=== PATIENT | female | born 1930 | race Caucasian/White ===

== ENCOUNTER 2017-07-08 10:04 | Emergency (ER) | payer OTHER ==
[~2017-07-08] VITALS: Ht 147.3 cm; Wt 40.8 kg
--- NOTE | ~2017-07-08 | EKG ---
[facility] [employer] [place] [address] ELECTROCARDIOGRAM REPORT Name: KISHA DOWNEY [id number] Admission: 07/08/17 Attend Phys: Discharge: Date of : 30 Report #: [id number] THIS REPORT FOR: //name// [facility] ED Test Date: 2017-07-08 Test Time: 10:33:28 Pat Name: KISHA DOWNEY Department: Room: Gender: F Certified Physical Therapist Assistant: MILLA : 1930 Requested By: Juan Luis Rob Order Number: [id number] MD: Zaid Wyatt Measurements Intervals [place] Rate: 96 P: 269 FL: 246 QRS: -10 QRSD: 85 T: 65 QT: 345 QTc: 436 Interpretive Statements Sinus or ectopic atrial rhythm Prolonged [place] interval Low voltage, extremity leads Compared to ECG 07/19/2015 15:39:43 No significant change was found Electronically Signed On 07-08-2017 12:31:12 CDT by Zaid Wyatt [email or web address] <ELECTRONICALLY SIGNED> By: Zaid Wyatt MD, [facility] 07/08/17 1231 [id number] Zaid Wyatt MD, [facility] /EPI
[~2017-07-08 10:04] MED LIST: AMARYL4 MG PO; ASPIRIN EC81 M1 PO; CALCIUM PO; CENTRUM SILVER1 EAC4 PO; LEVOTHYROXIN0.075 MG PO; LEVOTHYROXIN0.125 M1 PO; NEURONTIN 300300 M1 PO; NEURONTIN100 MG PO; OCUVITE LUTEIN1 EAC1 PO; TOPROL XL25 MG PO; TRAMADOL 50 MG50 MG PO; ZOCOR20 MG PO; [UNRECOGNIZED DRUG - OTHER] PO
[2017-07-08 10:48] LABS: ABSOLUTE NEUTROPHILS 5.1 thou/uL (1.4-8.2); BASOPHILS 0.7 % (0.0-2.0); EOSINOPHILS 0.7 % (0.0-3.0); HEMATOCRIT 37.8 % (37.0-47.0); HEMOGLOBIN 12.8 gm/dL (12.0-15.0); LYMPHOCYTES 19.6 % (24.0-44.0); MCH 29.9 pg (26.0-34.0); MCHC 33.7 g/dL (28.0-37.0); MCV 88.7 fL (80.0-100.0); MONOCYTES 9.6 % (1.0-8.0); PLATELET COUNT 203 thou/uL (150-400); POLYS 69.4 % (36.0-66.0); RBC 4.26 mil/uL (4.20-5.00); RDW 13.1 % (10.5-14.5); WBC 7.4 thou/uL (4.0-11.0)
[2017-07-08 10:59] LABS: ANION GAP 8 mmol/L (7-16); BUN 14 mg/dL (7-18); CALCIUM 9.4 mg/dL (8.5-10.1); CHLORIDE 100 mmol/L (98-107); CO2 27 mmol/L (21-32); CREATININE 0.8 mg/dL (0.6-1.0); GLUCOSE 205 mg/dL (74-106); SODIUM 135 mmol/L (136-145)
[2017-07-08 11:07] LABS: MAGNESIUM 2.1 mg/dL (1.8-2.4); SGOT 20 U/L (15-37); SGPT 20 U/L (30-65); TOTAL BILIRUBIN 0.8 mg/dL (<0.1-1.0); TOTAL PROTEIN 7.3 g/dL (6.4-8.2); TROPONIN-I < 0.04 ng/mL (<0.06)
[2017-07-08 11:10] LABS: APTT 26.9 Seconds (24.5-32.8); D-DIMER 0.9 ug/mLFEU (0.19-0.50); PROTIME 10.3 Seconds (9.3-11.4)
== END 2017-07-08 14:00 | disposition home or self-care (01) ==
LOC: ER 10:04
PROVIDERS: Emergency Medicine
DX: M79.604 Pain in right leg (principal); R07.9 Chest pain, unspecified; E11.9 Type 2 diabetes mellitus without complications; M19.90 Unspecified osteoarthritis, unspecified site; Z90.710 Acquired absence of both cervix and uterus

== ENCOUNTER 2017-08-15 16:13 | Inpatient (IN) | payer OTHER ==
[~2017-08-15] VITALS: Ht 149.9 cm; Wt 56.7 kg
[~2017-08-15 16:13] MED LIST changes: +ACIDOPHILUS1 EAC4 PO; +AUGMENTIN 875-1 EACH PO; +LISINOPRIL10 MG PO
[2017-08-15 16:23] VITALS: BP 131/64
[2017-08-15] MEDS ORDERED: LINEZOLID600 MG PO (16:36)
[2017-08-15 17:42] LABS: HEMATOCRIT 35.3 % (37.0-47.0); HEMOGLOBIN 11.6 gm/dL (12.0-15.0); MCH 30.1 pg (26.0-34.0); MCV 91.1 fL (80.0-100.0); PLATELET COUNT 206 thou/uL (150-400); RBC 3.87 mil/uL (4.20-5.00); RDW 15.2 % (10.5-14.5); WBC 6.1 thou/uL (4.0-11.0)
[2017-08-15 17:49] LABS: CALCIUM 9.3 mg/dL (8.5-10.1); POTASSIUM 5.1 mmol/L (3.5-5.1)
[2017-08-15 18:04] LABS: ABSOLUTE NEUTROPHILS 3.5 thou/uL (1.4-8.2); ANISOCYTOSIS 1+; POLYCHROMASIA OCCASIONAL
[2017-08-15 18:41] LABS: URINE BILIRUBIN NEGATIVE (Negative); URINE BLOOD NEGATIVE (Negative); URINE CLARITY CLEAR; URINE COLOR YELLOW; URINE GLUCOSE-RANDOM* NEGATIVE (Negative); URINE KETONES NEGATIVE (Negative); URINE LEUKOCYTES-REFLEX 1+ (Negative); URINE NITRITE-REFLEX NEGATIVE (Negative); URINE PROTEIN (DIPSTICK) NEGATIVE (Negative); URINE SPECIFIC GRAVITY 1.015 (1.005-1.035); URINE UROBILINOGEN 0.2 E.U./dl (0.2-1.0)
[2017-08-15 18:48] LABS: CASTS None Seen /LPF (None Seen); CRYSTALS None Seen /LPF (None Seen); SQUAMOUS 0-3 Few /LPF (0-3)
[2017-08-15 18:49] LABS: BACTERIA-REFLEX 1-9 Few /HPF (None Seen); URINE RBC None Seen /HPF (0-2)
[2017-08-15 19:28] VITALS: BP 117/79
[2017-08-15 19:57] VITALS: BP 118/61
[2017-08-15 20:20] VITALS: BP 120/65
[2017-08-16 03:47] VITALS: BP 115/60
[2017-08-16 08:00] VITALS: BP 128/56
[2017-08-16 11:34] LABS: CALCIUM 8.9 mg/dL (8.5-10.1); POTASSIUM 4.4 mmol/L (3.5-5.1)
[2017-08-16 16:00] VITALS: BP 110/54
[2017-08-16 22:32] VITALS: BP 114/50
[2017-08-17 03:43] VITALS: BP 122/75
[2017-08-17 08:00] VITALS: BP 143/81
[2017-08-17 15:55] VITALS: BP 120/52
[2017-08-17 20:01] VITALS: BP 152/70
[2017-08-18 06:15] VITALS: BP 144/80
[2017-08-18 08:00] VITALS: BP 139/67
[2017-08-18] MEDS ORDERED: LINEZOLID600 MG PO (11:27)
[2017-08-18 12:55] VITALS: BP 144/80
== END 2017-08-18 14:35 | disposition home health service (06) | DRG 690 ==
LOC: ER 16:13 → EROBS 19:13 → 4W 19:13 → ENTRNSPT 08-18 14:24 → EDTRNSPTSTS 08-18 14:27 → 4W 08-18 14:35
PROVIDERS: Emergency Medicine; Nurse Practitioner Family
DX: N39.0 Urinary tract infection, site not specified (principal); T78.3XXA Angioneurotic edema, initial encounter; I10 Essential (primary) hypertension; E78.5 Hyperlipidemia, unspecified; F03.90 Unspecified dementia, unspecified severity, without behavioral disturbance, psychotic disturbance, mood disturbance, and anxiety; M06.9 Rheumatoid arthritis, unspecified; E03.9 Hypothyroidism, unspecified; G89.4 Chronic pain syndrome; T46.4X5A Adverse effect of angiotensin-converting-enzyme inhibitors, initial encounter; E09.65 Drug or chemical induced diabetes mellitus with hyperglycemia; T38.0X5A Adverse effect of glucocorticoids and synthetic analogues, initial encounter; B95.2 Enterococcus as the cause of diseases classified elsewhere; Z86.73 Personal history of transient ischemic attack (TIA), and cerebral infarction without residual deficits; Z88.8 Allergy status to other drugs, medicaments and biological substances; Y92.89 Other specified places as the place of occurrence of the external cause; Z79.899 Other long term (current) drug therapy; Z79.82 Long term (current) use of aspirin; Z90.710 Acquired absence of both cervix and uterus
CPT/HCPCS: 10040